=== PATIENT | female | born 1965 | race Caucasian/White ===

== ENCOUNTER 2025-04-06 15:46 | Outpatient (AMB) | payer OTHER, SELFPAY ==
[2025-04-06 15:46] VITALS: BP 132/62; PULSE 99; O2SAT 99; BMI 38.7
--- NOTE | 2025-04-06 15:46 | HO.NEPHOV ---
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 Required: No Accompanied by: Self / Same As Patient Allergies cats Allergy (Unknown, Uncoded 04/05/25 08:46) Unknown keflex malaise Allergy (Unknown, Uncoded 04/05/25 08:46) Unknown Medication List - Last Reconciled 04/06/25 by Jj Martínez MD atorvastatin 40 mg PO DAILY chlorthalidone 50 mg PO DAILY chlorthalidone 25 mg PO DAILY insulin glargine-yfgn (Semglee (insulin glargine-yfgn) Pen) 68 units subcut DAILY insulin NPH and regular human 100 unit/mL (70-30) (Humulin 70/30 U-100 KwikPen) 18 units subcut BID levothyroxine 175 mcg PO DAILY losartan 50 mg PO DAILY semaglutide (Ozempic) 1 mg subcut QWEEK HPI Comments Details: Martina is a pleasant 59-year-old woman with a history of diabetes mellitus for almost 40 years. 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 At that time she had ascites which was also drained. She has been on chlorthalidone 75 mg a day. In July of 2024 serum creatinine was 1.09. In January of 2025 serum creatinine bumped up to 1.27 she had microalbuminuria with the albumin creatinine ratio of 137 and hence this referral. She is on Ozempic. She was not lost any weight. Over the last few months she lost 6 lb with dieting. Prior to that she had gained about 20 lb. [facility] Medical History (Updated 04/06/25 @ 16:05 by Jj Martínez MD) Mixed hyperlipidemia Gout BMI 37.0-37.9, adult Annual physical exam Essential hypertension Adult-onset obesity Hypercholesterolemia Obesity Heart murmur Hypothyroidism Hypertension Diabetes Surgical History History of carpal tunnel surgery Hx of cholecystectomy S/P left rotator cuff repair S/P right rotator cuff repair History of cataract surgery Family History Mother Diabetes Review of Systems Const Denies fever(s), Reports snoring and Denies weight loss Card Denies chest pain Resp Denies cough, Denies hemoptysis and Reports snoring GI Denies abdominal pain, Denies diarrhea and Denies nausea Musc Denies back pain Neuro Denies focal weakness Physical Exam Vital Signs: Last Vital Signs Pulse 99 04/06/25 15:46 BP 132/62 04/06/25 15:46 Pulse Ox 99 04/06/25 15:46 Oxygen Delivery Method Room Air 04/06/25 15:46 BMI result Body Mass Index 38.7 Comfortable Neck supple no JVD. Lungs entry equal no rales. Heart S1-S2 heard no gallop or rub. Abdomen soft nontender. Neuro alert awake oriented. No asterixis. Extremities 1+edema. Const General: comfortable; No acute distress Orientation/consciousness: patient oriented x3 Eyes General: appearance normal, both eyes and all related structures Visual Valentine: normal visual valentine by confrontation Neck Neck: Yes supple and Yes no JVD Resp Effort & Inspection: normal respiratory effort and respiratory effort not decreased Cardio Palpation: no palpable S3 and no palpable S4 Heart sounds: no rubs GI Inspection: Yes normal to inspection Palpation (GI): Soft to palpation Percussion: Yes normal to percussion Auscultation: normal bowel sounds General: Yes no CVA tenderness Back/Spine/Pelvis Back: no CVA tenderness Skin General skin exam: no petechiae and no purpura Neuro General: patient oriented x3 and no focal motor deficits Extrem General: No clubbing and No edema Results Reviewed Results Reviewed: As of January 29 in 2023 Serum creatinine 1.27 Serum Hg was normal. Alkaline phosphatase was mildly elevated. Urine albumin creatinine ratio 137 Nephrology Results: No Data to Display Assessment & Plan Assessment & Plan (1) CKD (chronic kidney disease): Code(s): N18.9 - Chronic kidney disease, unspecified Category: Medical (2) Ascites: Code(s): R18.8 - Other ascites Category: Medical Plan Martina has chronic kidney disease most likely due to underlying diabetic kidney disease. There has been recent increase serum creatinine. There could be a component of hypoperfusion from high dose of diuretics. Other possibilities including obstructive uropathy should be considered. Based on recent urine studies I do not believe she has any active glomerular nephritis or interstitial disease. Rule out ascites Plan Obtain abdominal ultrasonogram. Encouraged her to stay on a low-sodium diet. Continue current diuretics for now. Continue to avoid NSAIDs. Further workup will be based on the outcome of the baseline investigations. If indeed she has a component of hypoperfusion renal function should improve by lowering the diuretics. However since she appears to have fluid overload based on clinical findings I will not lower the diuretics for now. Encouraged her to continue with Ozempic. Returned to the office in the next few weeks Orders: Orders Comprehensive Met. Panel Today N18.9 - Chronic kidney disease, unspecified Complete Blood Count no Diff Today N18.9 - Chronic kidney disease, unspecified US abdomen complete Today N18.9 - Chronic kidney disease, unspecified, R18.8 - Other ascites UA and rflx microscopic Today N18.9 - Chronic kidney disease, unspecified Total Protein Urine Random Today N18.9 - Chronic kidney disease, unspecified Creatinine Urine Today N18.9 - Chronic kidney disease, unspecified Coding Level of Care Code New Pt Level 4 (76662) Diagnoses CKD (chronic kidney disease) N18.9 Ascites R18.8
--- OUTSIDE RECORDS SUMMARY | 2025-04-06 15:49 | XMS_ITS | Clinical Summary ---
Author Organization [facility] ity Address [address] [place] [address] Care Team Providers Care Skein Inspector Name Role Phone Chris Zavala MD Primary Care Provider [phone] Surgical History Surgery Date Site/Laterality Comments CARPAL TUNNEL RELEASE 10/15/2006 Bilateral PROCEDURE: HISTORICAL CARPAL TUNNEL REL; COMMENT: Salty - Dr. Puente; also 2007 EYE SURGERY 06/09/2007 PROCEDURE: [place] TRABECULOPLASTY BY LASER SURGERY; COMMENT: macular edema L- Dr. Antony OTHER SURGICAL HISTORY 1987 PROCEDURE: [place] TRACHELECTOMY CERVICECTOMY AMP CERVIX SPX OVARIAN CYST REMOVAL PROCEDURE: [place] OVARIAN CYSTECTOMY UNI/BI SECTION x 2 PROCEDURE: [place] DELIVERY ONLY TUBAL LIGATION 1987 PROCEDURE: HISTORICAL TUBAL LIGATION SHOULDER SURGERY 07/02/2013 PROCEDURE: HISTORICAL SHOULDER SURGERY; COMMENT: L rotator cuff repair - Dr. Ashraf Medical History Medical History Date Comments Cervical cancer ([facility]/HCC V24 , [facility] V28) 1987 DX:Cervical cancer (HCC) Type II or unspecified type diabetes mellitus with unspecified complication, not stated as uncontrolled DX:Type II or unspecified ty pe diabetes mellitus with unspecified complication, not stated as uncontrolled Bacterial pneumonia, unspecified DX:Bacterial pneumonia, unspecified Nephritis and nephropathy, n ot specified as acute or chronic, with unspecified pathological lesion in kidney DX:Nephritis and nephropathy , not specified as acute or chronic, with unspecified pathological lesion in kidney Other specified personal his tory presenting hazards to health(V15.89) DX:Other specifie d personal history presenting hazards to health(V15.89) Hypertension 09/15/2008 DX:Hypertension Unspecified disorder of thyroid DX:Unspecified disorder of thyroid History of hepatitis C 06/26/2006 DX:Histor y of hepatitis C; COMMENT: Chronic Hepatitis C Genotype 1A. [place] Started 11/21/17: Ribavirin 600 mg twice a day and Epclusa 400-100 mg tabs. Take 1 tab daily for 12 Weeks. End date approx 02/01/18. (Dr. Covarrubias, Dr. Fulton----ribavirin d/c'd due to anemia approx 01/19. Epclusa d/c'd 02/01/2018 due to anemia, last dose 02/01/2018.) Genotype 1a on testing 02/22/2017. interferon-induced r* Family History Medical History Relation Name Comments Stroke Father Diabetes Mother Blindness Neg Hx Cataracts Neg Hx Glaucoma Neg Hx Macular degeneration Neg Hx Strabismus Neg Hx Relation Name Status Comments Brother Alive Father Alive Maternal Grandfather Maternal Grandmother Mother Alive Paternal Grandfather Paternal Grandmother Son 1 Alive Son 2 Alive Social History Tobacco Use Types Packs/Day Years Used Date Smoking Tobacco: Former Cigarettes 0.3 15.1 1 12/13/1980 - 11/24/1996 Smokeless Tobacco: Never Alcohol Use Standard Drinks/Week Comments No 0 (1 standard drink = 0.6 oz pur e alcohol) Comments Unknown Sex and Gender Information Value Date Recorded Sex Assigned at Not on file Legal Sex Female 6:20 AM EST Gender Identity Not on file Sexual Orientation Not on file Obstetrics History Last Filed Vital Signs Vital Sign Reading Time Taken Comments Blood Pressure 139/80 05/14/2022 4:03 PM EDT Pulse 84 05/14/2022 4:03 PM EDT Temperature - - Respiratory Rate - - Oxygen Saturation - - Inhaled Oxygen Concentration - - Weight 98 kg (216 lb) 05/14/2022 4:03 PM EDT Height 161.3 cm (5' 3.5 ) 05/14/2022 4:03 PM EDT Body Mass Index 37.66 05/14/2022 4:03 PM EDT Plan of Treatment Health Maintenance Due Date Last Done Comments Breast Cancer Screening 1963 Diabetes: Annual Foot Exam 1973 Diabetes: Annual Retina Eye Exam 1973 Hepatitis A Vaccines (1 of 2 - Risk 2-dose series) 1982 Cervical Cancer Screening: Pap Smear 1984 Hepatitis B Vaccines (3 of 3 - Risk 3-dose series) 12/21/2005 07/22/2005, 06/20/2005 Pneumococcal Vaccine: 50+ Years (2 of 2 - PCV) 2013 08/27/2007 Zoster Vaccines (1 of 2) 2013 Cholesterol Screening (Lipid Panel) 11/02/2022 Colorectal Cancer Screening: Stool Based Tests (FOBT/FIT) 11/02/2022 Depression Screening 11/02/2022 Diabetes: Annual Urine Albumin-Creatinine Ratio (uACR) 11/02/2022 Diabetes: Blood Sugar Control Test (HGBA1C) 11/02/2022 HIV Screening 11/02/2022 Hepatitis C Screening 11/02/2022 Social Influencers of Health Screening 11/02/2022 RSV Immunization Adult Patients (1 - Risk 60-74 years 1-dose series) 2023 Diabetes: Annual GFR (Glomerular Filtration Rate) 01/08/2024 01/08/2023 Hypertension/CHF/CAD Annual BMP Blood Test 01/08/2024 01/08/2023 COVID-19 Vaccine ( season) 2024 04/04/2022, 10/07/2021, 12/20/2020, Additional history exists Influenza Vaccine (Season Ended) 2025 08/15/2021, 09/04/2018, 08/05/2017, Additional history exists DTaP,Tdap,and Td Vaccines (3 - Td or Tdap) 04/14/2029 04/14/2019, 07/05/2011 Pneumococcal Vaccine: Pediatrics (0 to 5 Years) and At-Risk Patients (6 to 64 Years) Aged Out 08/27/2007 No longer eligible based on patient's age to complete this topic HIB Vaccines Aged Out No longer eligi ble based on patient's age to complete this topic HPV Vaccines Aged Out No longer eligi ble based on patient's age to complete this topic IPV Vaccines Aged Out No longer eligi ble based on patient's age to complete this topic MMR Vaccines Aged Out No longer eligi ble based on patient's age to complete this topic Meningococcal ACWY Vaccine Aged Out N o longer eligible based on patient's age to complete this topic Meningococcal B Vaccine Aged Out No l onger eligible based on patient's age to complete this topic RSV Immunization Patients Under 20 months Aged Out No longer eligible based on patient's age to complete this topic Varicella Vaccines Aged Out No longer eligible based on patient's age to complete this topic Care Teams Skein Inspector Relationship Specialty Start Date End Date Chris Zavala MD [address] [place] [id number] PCP - General 01/08/23
--- OUTSIDE RECORDS SUMMARY | 2025-04-06 15:49 | XMS_ITS | Clinical Summary ---
Author Organization [facility] Facility Address [address] [place] [address] Care Team Providers Care Career Services Representative Name Role Phone Maricopa-Paulette Covarrubias MD Primary Care Provider Family History Medical History Relation Comments Heart disease Father Diabetes Mother Relation Status Comments Father Alive Mother Social History Tobacco Use Types Packs/Day Years Used Date Smoking Tobacco: Former Comments:Smoking History Inf o:Every day Alcohol Use Standard Drinks/Week Comments No 0 (1 standard drink = 0.6 oz pur e alcohol) Comments Unknown Sex and Gender Information Value Date Recorded Sex Assigned at Not on file Legal Sex Female 4:51 PM EST Gender Identity Not on file Sexual Orientation Not on file Plan of Treatment Health Maintenance Due Date Last Done Comments Breast Cancer Screening 1965 Pneumococcal Vaccine: 50+ Ye ars (1 of 2 - PCV) 1982 Colorectal Cancer Screening: Annual FOBT 2012 Colorectal Cancer Screening: Colonoscopy 2012 Colorectal Cancer Screening: Sigmoidoscopy 2012 Influenza Vaccine (Season Ended) 2025 Hepatitis B Vaccine Aged Out No longe r eligible based on patient's age to complete this topic Insurance [facility] Care Teams Career Services Representative Relationship Specialty Start Date End Date Louisa-Paulette Covarrubias MD [address] [place] [address] PCP - General Internal Medicine 01/09/21
== END 2025-04-06 16:11 | disposition home or self-care (01) ==
LOC: HO.HKAE 15:47
PROVIDERS: PCP Internal Medicine; Visit Provider Internal Medicine Hypertension Specialist
DX: N18.9 Chronic kidney disease, unspecified (principal); R18.8 Other ascites
CPT/HCPCS: 99204

== ENCOUNTER → 2025-04-06 15:46 | Outpatient (BNVA) | payer OTHER, SELFPAY | PROVIDERS: PCP Internal Medicine; Visit Provider Internal Medicine Hypertension Specialist ==